=== PATIENT | male | born 1995 | race Caucasian/White ===

== ENCOUNTER 2017-02-16 20:07 | Emergency (ER) | payer OTHER ==
[~2017-02-16] VITALS: Ht 180.3 cm; Wt 136.5 kg
[2017-02-16 20:15] VITALS: BP 134/86; PULSE 75; TEMP 36.7; O2SAT 99; Ht 180.3 cm; Wt 136.5 kg
[2017-02-16] MEDS ORDERED: PENICILLIN HOME PACK 500MG (4 DOSES)BTL PO ONE (20:30)
[2017-02-16] MEDS ORDERED: NORCO 5/325MG HOME PACK PO ONE (20:30)
[2017-02-16] MEDS ORDERED: PENI500T2 PO (20:34)
[2017-02-16] MEDS ORDERED: HYDR-5688 PO (20:34)
--- NOTE | 2017-02-16 21:31 | EMERGENCY ROOM VISIT NOTE ---
ED Visit Note First contact with patient: 20:19 CHIEF COMPLAINT: Toothache and swollen face. HISTORY OF PRESENT ILLNESS: Mr. Funes is a 21-year-old white male who ambulates into the ED complaining of dental pain. He reports he saw a dentist a few weeks ago and was told that he needed right maxillary teeth extracted because of decay. He reports he never followed up with the oral surgeon to the dentist recommended. Patient reports approximately 2 days ago he started experiencing moderate to severe right maxillary dental pain. Since that time his pain has been constant. The pain is radiating into his face. He reports he has not been able to sleep in the last 24 hours because of pain. He has been using over-the- counter medications without relief. Associated with his pain he reports yesterday he started swelling over the right maxillary area. Currently he rates his discomfort 7/10. He denies fevers, chills, sweats, facial erythema, sore throat, difficulty swallowing, voice changes, drooling. REVIEW OF SYSTEMS: As noted above in History of Present Illness. 8 body systems were reviewed with this patient and found to be negative unless noted above otherwise. PMH: Unspecified skin disorder. CURRENT MEDICATION: Patient denies. ALLERGIES TO MEDICATION: Patient denies. SOCIAL HISTORY: Patient is currently employed; he feels safe in his home environment; he denies tobacco and alcohol use. PHYSICAL EXAM: Vital Signs: Date Time Temp Pulse Resp B/P (MAP) Pulse Ox O2 Delivery O2 Flow Rate FiO2 02/16/17 20:15 36.7 75 18 134/86 99 Room Air General: 21 year-old white male in mild distress due to pain, nontoxic appearing , afebrile and hemodynamically stable. Neurological: Awake, alert and oriented to person, place and time. Answering questions appropriately and following commands. Normal gait. Good hand eye coordination. No focal motor or sensory deficits. Skin: Warm, dry and pink. No soft tissue lesions, rashes, or trauma noted. HEENT: Atraumatic and normocephalic. Oral cavity is moist and pink. Airway is patent. Uvula is midline and no abscesses are seen. No intraoral trauma, but there is multiple teeth in different stages of decay. Specifically noted was teeth 5, 6 and 7. In the surrounding gingiva there is mild erythema and moderate edema. There is a palpable abscess in the area. The face is not erythematous or cellulitic. No cervical or submandibular lymphadenopathy. ED COURSE: Patient is assessed as noted above. Patient is educated about his findings and instructed on her treatment plan; he verbalizes understanding and agreement with this plan. CLINIC IMPRESSION: Dental abscess. DISPOSITION: Patient discharged home in stable condition; prior to departure he was reassessed and subjectively reported he was feeling the same. PLAN: Comfort measures were discussed including a sliding pain scale of ibuprofen, acetaminophen and [place]. Patient was given appropriate precautions for narcotic use. Additionally his name was checked in the state database and no red flags for found. Patient was prescribed Pen-Vee K 500 mg 4 times a day for 10 days. Patient was encouraged to followup with his dentist or the referred oral surgeon for definitive care and treatment Patient was encouraged to return the ED for uncontrolled pain, worsening facial swelling, fevers or any new/concerning symptoms.
== END 2017-02-16 20:43 | disposition home or self-care (01) ==
LOC: C.EDB 20:08 → C.EDD 20:43
DX: K04.7 Periapical abscess without sinus (principal); K02.9 Dental caries, unspecified

== ENCOUNTER 2018-01-07 08:31 | Emergency (ER) | payer OTHER ==
[~2018-01-07] VITALS: Ht 180.3 cm; Wt 127.5 kg
[2018-01-07 08:36] VITALS: TEMP 36.7; Ht 180.3 cm; Wt 127.5 kg
--- NOTE | 2018-01-07 09:25 | DIAGNOSTIC IMAGING REPORT ---
R KNEE 3 VIEWS CLINICAL HISTORY: R knee pain COMPARISON: 02/18/2016 DISCUSSION: No fractures or dislocations are visualized. There is a persistent small calcification located just anterior to the distal quadriceps musculotendinous junction IMPRESSION: 1. No significant bony abnormalities Electronically signed by: Dima Stewart M.D. 01/07/2018 9:24 AM Dictated Date/Time: 01/07/2018 9:23 AM
--- NOTE | 2018-01-07 09:26 | DIAGNOSTIC IMAGING REPORT ---
L KNEE 3 VIEWS CLINICAL HISTORY: L knee pain COMPARISON: None. DISCUSSION: No fractures or dislocations are visualized. There are no erosive or destructive changes. IMPRESSION: No significant bony abnormalities identified. Electronically signed by: Dima Stewart M.D. 01/07/2018 9:24 AM Dictated Date/Time: 01/07/2018 9:24 AM
[2018-01-07 10:28] VITALS: BP 151/85; PULSE 87; O2SAT 97
--- NOTE | 2018-01-07 16:01 | EMERGENCY ROOM VISIT NOTE ---
History First contact with patient: 08:43 Chief Complaint: KNEEPAIN Stated Complaint: KNEE PAIN, CRACKING, GRINDING History of Present Illness The patient is a 22 year old male who presents to the Emergency Room with complaints of bilateral knee pain. The patient reports that he has had intermittent left knee pain for the past 1.5 years, and now right knee pain over the past 6 months. The patient reports that previously he did not have any insurance, and just recently got insurance. He currently does not have insurance card. The patient reports that his knees have been bothering him, and elected to come to the emergency department for further evaluation. 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 The patient denies any prior evaluations by orthopedic surgeons for his knee pain. He reports that the knees will occasionally crack and pop. He denies any skin changes, swelling or redness of the knees. He denies any pain extending into the thighs or legs. He also denies any prior history of gout, inflammatory arthritis or other significant health problems. He rates his discomfort a 2 out of 10. He reports that his right knee hurts the most right now. Review of Systems 10 system review was performed and was negative except for pertinent positives and negatives as indicated in history of present illness Past Medical/Surgical History Medical Problems: (1) Psoriasis Surgical Problems: (1) No significant past surgical history Family History FH: diabetes mellitus FH: gallbladder disease FH: heart disease FH: hypertension FH: kidney disease Social History Smoking Status: Never Smoker Alcohol Use: none Marital Status: single Housing Status: lives with family Occupation Status: employed Current/Historical Medications No Active Prescriptions or Reported Meds Physical Exam Vital Signs Date Time Temp Pulse Resp B/P (MAP) Pulse Ox O2 Delivery O2 Flow Rate FiO2 01/07/18 10:28 87 16 151/85 97 01/07/18 08:36 36.7 104 20 135/82 98 Room Air Physical Exam CONSTITUTIONAL: Healthy and well nourished. Alert and oriented X 3 with positive affect. Patient does not appear in any acute distress. HEENT: Normocephalic, atraumatic. Pupils equal, round and reactive. NECK: Full active range of motion without discomfort. MUSCULOSKELETAL: Examination of bilateral knees shows psoriatic plaques anteriorly. Otherwise the patient does not have any focal tenderness to palpation of the joint lines, hamstrings, peripatellar region, quadriceps or patellar tendons. Passive range of motion does not cause any discomfort. No popliteal masses. Pedal pulses are intact. INTEGUMENTARY: No rash or other significant dermatologic conditions noted. NEUROLOGIC: Lower extremities are sensory intact. Medical Decision & Procedures ER Provider Diagnostic Interpretation: My interpretation of right knee x-rays does not show any significant degenerative changes, joint effusion, fracture or dislocation. Calcification is noted at the quadriceps musculotendinous junction of unknown etiology. Radiologist report is as follows: R KNEE 3 VIEWS CLINICAL HISTORY: R knee pain COMPARISON: 02/18/2016 DISCUSSION: No fractures or dislocations are visualized. There is a persistent small calcification located just anterior to the distal quadriceps musculotendinous junction IMPRESSION: 1. No significant bony abnormalities My interpretation of left knee x-rays shows the same findings. Radiologist report is as follows: L KNEE 3 VIEWS CLINICAL HISTORY: L knee pain COMPARISON: None. DISCUSSION: No fractures or dislocations are visualized. There are no erosive or destructive changes. IMPRESSION: No significant bony abnormalities identified. ED Course Patient history and physical exam were performed. Nurse's notes were reviewed. Vital signs were reviewed and were normal. The patient refused any analgesics on initial exam. Bilateral knee x-rays were unremarkable. The patient will be dispensed a knee immobilizer to be used as needed for any discomfort. I did suggest that he follow-up with orthopedics for further reevaluation and management. I did explain that his insurance may require a referral, and suggested that he call his insurance provider to see if he indeed does need a referral. He was encouraged alternate ibuprofen and Tylenol as needed for pain, and also intermittently apply ice and elevate the knees for additional relief. The patient was happy with plan of care, voiced understanding of all discharge instructions, and rated his discomfort a 3 out of 10 at the conclusion of my exam. Medical Decision Medication Reconcilliation Current Medication List: was personally reviewed by me Blood Pressure Screening Patient's blood pressure: Normal blood pressure Impression Primary Impression: Bilateral knee pain Departure Information Prescriptions No Active Prescriptions or Reported Meds Referrals No Doctor, Assigned (PCP) Patient Instructions My [facility] Problem Qualifiers Primary Impression: Bilateral knee pain Chronicity: chronic Qualified Codes: M25.561 - Pain in right knee; M25.562 - Pain in left knee; G89.29 - Other chronic pain
== END 2018-01-07 10:30 | disposition home or self-care (01) ==
LOC: C.EDB 08:33 → C.EDA 10:30
DX: M25.562 Pain in left knee (principal); M25.561 Pain in right knee; G89.29 Other chronic pain